=== PATIENT | male | born 1995 | race Two or more races ===

== ENCOUNTER → 2020-01-21 | Emergency (ER) | payer SELFPAY ==
--- NOTE | 2020-01-21 00:16 | NUR ---
ED Nurse Note: Patint walked into triage room, states that he does not want to be seen, patient was asked multiple times, if he wanted to be seen, refused. patient walked out of triage room with a steady gait and accompanied by family member
--- NOTE | 2020-01-21 00:16 | NUR ---
Rita leroy in [facility] - 01/21/20 at 0019 by R[place] patient refused to be triaged
--- NOTE | 2020-01-21 01:07 | Emergency Room Report ---
History of Present Illness General Chief Complaint: To Be Triaged Present Illness HPI Patient left the ER prior to being triaged or seen by me. Medical Decision Making Disposition: LEFT W/OUT BEING SEEN Referrals: NOT CHOSEN IPA/,REFERRING (PCP) Riky Hawthorne M.D. January 21, 2020 01:07
== END | disposition left against medical advice (07) ==
LOC: EMR 00:16
DX: Z53.21 Procedure and treatment not carried out due to patient leaving prior to being seen by health care provider (principal)